=== PATIENT | male | born 1960 | race American Indian/Alaskan Native ===

== ENCOUNTER 2018-07-24 00:22 | Emergency (ER) | payer MEDICAID, OTHER ==
[2018-07-24 01:07] VITALS: BMI 26.6
[2018-07-24 01:40] VITALS: BP 159/91; PULSE 72; RESP 16; TEMP 98.6; O2SAT 100
[2018-07-24] MEDS ORDERED: Oxycodone/Acetaminophen 5/325 mg Tab PO STA (01:40)
--- NOTE | 2018-07-24 01:41 | ED PDOC ---
Arrival/HPI - General Chief Complaint: Finger,Hand,&Wrist Historian: Patient - History of Present Illness Narrative History of Present Illness (Text): 07/24/18 01:36 58 y/o male, pmh including htn/hld/HIV, nkda, c/o lt. hand thumb pain with clicking sensation x 4 days with no fall or trauma. Aching pain, aggravated by flexion and extension on the 1st MCPJ and PIPJ region which he has popping or clicking sensation, no skin redness, no fever or chills, no other medical or psychological complaints. Past Medical History - Provider Review Nursing Documentation Reviewed: Yes - Cardiac Hx Hypertension: Yes - Psychiatric Hx Depression: Yes Hx Substance Use: No - Past Surgical History Past Surgical History: No Previous - Anesthesia Hx Anesthesia: No - Suicidal Assessment Feels Threatened In Home Enviroment: No Family/Social History - Physician Review Nursing Documentation Reviewed: Yes Family/Social History: Unknown Family HX Smoking Status: Never Smoked Hx Alcohol Use: No Hx Substance Use: No Allergies/Home Meds Allergies/Adverse Reactions: Allergies No Known Allergies Allergy (Verified 07/24/18 01:07) Home Medications: Home Meds Medication Instructions Recorded Confirmed Bupropion Hydrochloride 300 mg PO DAILY 08/05/12 07/24/18 [Wellbutrin] Escitalopram [Lexapro] 10 mg PO DAILY 08/05/12 07/24/18 Abacavir/Dolutegravir/Lamivudi 1 tab PO DAILY 07/24/18 07/24/18 [Triumeq 600-50-300 mg Tablet] Atorvastatin [Lipitor] 10 mg PO DAILY 07/24/18 07/24/18 Losartan/Hydrochlorothiazide 1 tab PO DAILY 07/24/18 07/24/18 [Hyzaar 100-12.5 Tablet] amLODIPine [Norvasc] 10 mg PO DAILY 07/24/18 07/24/18 Review of Systems - Review of Systems Constitutional: absent: Fatigue, Fevers Eyes: absent: Vision Changes ENT: absent: Hearing Changes Respiratory: absent: SOB, Cough, Sputum Cardiovascular: absent: Chest Pain Gastrointestinal: absent: Abdominal Pain, Nausea, Vomiting Musculoskeletal: Arthralgias. absent: Back Pain, Neck Pain, Joint Swelling, Myalgias Skin: absent: Rash, Pruritis Neurological: absent: Headache Psychiatric: absent: Anxiety, Depression Physical Exam Vital Signs Reviewed: Yes Temperature: Afebrile Blood Pressure: Hypertensive Pulse: Regular Respiratory Rate: Normal Appearance: Positive for: Well-Appearing, Non-Toxic, Comfortable Pain Distress: Moderate Mental Status: Positive for: Alert and Oriented X 3 - Systems Exam Head: Present: Atraumatic, Normocephalic Pupils: Present: PERRL Extroacular Muscles: Present: EOMI Conjunctiva: Present: Normal Mouth: Present: Moist Mucous Membranes Neck: Present: Normal Range of Motion Respiratory/Chest: Present: Clear to Auscultation, Good Air Exchange. No: Respiratory Distress, Accessory Muscle Use Cardiovascular: Present: Regular Rate and Rhythm, Normal S1, S2. No: Murmurs Abdomen: No: Tenderness, Distention, Peritoneal Signs Back: Present: Normal Inspection Upper Extremity: Present: Normal Inspection, Other (Lt. hand: mild tenderness on the 1st MCPJ and PIPJ with clicking/poppping sensation with flexion and appear to be triggered thumb, no skin redness, negative karnival signs, no signs of cellulitis or tenosynovitis, FROM without limitation, sensation intact, motor 5/5, +radial pulse, capillary refill< 2 seconds, neurovascular intact. ). No: Cyanosis, Edema Lower Extremity: Present: Normal Inspection. No: Edema Neurological: Present: GCS=15, CN II-XII Intact, Speech Normal Skin: Present: Warm, Dry, Normal Color. No: Rashes Psychiatric: Present: Alert, Oriented x 3, Normal Insight, Normal Concentration Medical Decision Making ED Course and Treatment: 07/24/18 01:44 -percocet, thumb spical splint -lt. hand thumb xray -observe and reassess 07/24/18 02:17 -I explained to patient that he would need MRI of the hand to r/o any tendon/ligament injury. -Pending xray. -Pt. left the ER without radiology study or completion of standard care evaluation, unable to locate the patient, he would be placed as elopement. - PA / MECHANIC WELDER / Resident Statement MD/DO has reviewed & agrees with the documentation as recorded. Disposition/Present on Arrival - Present on Arrival Any Indicators Present on Arrival: No History of DVT/PE: No History of Uncontrolled Diabetes: No Urinary Catheter: No History of Decub. Ulcer: No History Surgical Site Infection Following: None - Disposition Have Diagnosis and Disposition been Completed?: Yes Diagnosis: Trigger thumb, Thumb pain Disposition: ELOPEMENT - ER ONLY Disposition Time: 02:28 Condition: STABLE Referrals: Branden Huang MD [Staff Provider] - Follow up with primary Niels Sánchez DO [Staff Provider] - Follow up with primary [facility] [place] [Outside] - Follow up with primary Forms: [employer] ([employer])
== END 2018-07-24 02:27 | disposition left against medical advice (07) ==
LOC: ED 00:22
DX: M65.312 Trigger thumb, left thumb (principal); M79.645 Pain in left finger(s)